=== PATIENT | female | born 1970 | race Caucasian/White ===

== ENCOUNTER → 2016-12-08 | Outpatient (CLI) | payer BC ==
--- NOTE | 2016-12-08 16:40 | Diagnostic Imaging Report ---
Indication: Screening mammography. Technique: Bilateral mammography performed with craniocaudal and mediolateral oblique projections. Prior examinations: 11/07/15, 11/01/14, 12/07/13, 12/06/13 Findings: The breasts are extremely dense. This finding is known to diminish the sensitivity of screening mammography in the detection of breast carcinoma.. No dominant mass, architectural distortion, or suspicious microcalcifications are identified. The axilla, the skin, and nipples are unremarkable. Desiccation are present. Impression: Birads 2. No mammographic evidence for malignancy.
== END | disposition home or self-care (01) ==
LOC: MAMMO 10:43
DX: Z12.31 Encounter for screening mammogram for malignant neoplasm of breast (principal)
CPT/HCPCS: 77067